=== PATIENT | female | born 1975 | race Caucasian/White ===

== ENCOUNTER 2017-03-04 16:16 | Emergency (ER) | payer OTHER ==
[2017-03-04 16:27] VITALS: BP 121/76
--- NOTE | 2017-03-04 16:59 | UC ---
Complaint Female HPI - HPI Summary HPI Summary: 41 y/o female PMHX presents to the urgent care c/o urgency and hesitancy to urinate since last night. This morning she had mild hematuria. Pt states she just started taking OCP about 2 months ago. she has been spotting every every other 2 weeks. She is not sure if the hematuria is from her spotting. Pt denies fever, flank pain, lower back pain, abdominal pain, SOB, chest pain, N/V/D, vaginal discharge. - History Of Current Complaint Chief Complaint: UCGU Stated Complaint: UTI Time Seen by Provider: 03/04/17 16:48 Hx Obtained From: Patient Hx Last Menstrual Period: 21 days ago ?: No Onset/Duration: Gradual Onset, Lasting Days - 1 day, Still Present Timing: Constant, Lasting Days - 1 day Severity Initially: Mild Severity Currently: Moderate Pain Intensity: 6 Pain Scale Used: 0-10 Numeric Character: Burning Aggravating Factor(s): Urination Alleviating Factor(s): Nothing Associated Signs And Symptoms: Positive: Negative. Negative: Fever, Back Pain, Vaginal Bleeding/Discharge, Vaginal Discharge, Nausea, Vomiting(# Of Episodes =) , Genital Swelling, Genital Blisters - Risk Factors Ectopic Risk Factor: Negative Ovarian Torsion Risk Factor: Negative - Allergies/Home Medications Allergies/Adverse Reactions: Allergies Allergy/AdvReac Type Severity Reaction Status Date / Time Sulfa Antibiotics Allergy Rash Verified 03/04/17 16:28 dust,cats, mold, grass Allergy Unknown Uncoded 03/04/17 16:28 Reaction Details Home Medications: Home Medications Norethindrone Acet & Eth Estra [Alli 07/07 1-20 mg-Mcg] 1 tab PO DAILY 03/04/17 [History Confirmed 03/04/17] PMH/Surg Hx/FS Hx/Imm Hx Previously Healthy: Yes Respiratory History: Asthma Other GI/ History: Chrons - Surgical History Surgical History: Yes Surgery Procedure, Year, and Place: ileostomy; tonsilectomy; wisdom teeth; partial hysterectomy(tubes only); appe - Family History Known Family History: Negative: Cardiac Disease, Hypertension, Diabetes Family History: Dyslipidemia - Social History Occupation: Employed Full-time Lives: With Family Alcohol Use: Rare Substance Use Type: None Smoking Status (MU): Never Smoked Tobacco Have You Smoked in the Last Year: No - Immunization History Most Recent Influenza Vaccination: fall 2014 Review of Systems Constitutional: Negative Skin: Negative Eyes: Negative ENT: Negative Respiratory: Negative Cardiovascular: Negative Gastrointestinal: Negative Genitourinary: Dysuria, Hematuria, Urgency Motor: Negative Neurovascular: Negative Musculoskeletal: Negative Neurological: Negative Psychological: Negative Is Patient Immunocompromised?: No All Other Systems Reviewed And Are Negative: Yes Physical Exam Triage Information Reviewed: Yes Appearance: Well-Appearing, No Pain Distress, Well-Nourished Vital Signs: Initial Vital Signs Temp 98.7 F 03/04/17 16:25 Pulse 89 03/04/17 16:25 Resp 18 03/04/17 16:25 BP 121/76 03/04/17 16:25 Pulse Ox 100 03/04/17 16:25 Vital Signs Reviewed: Yes Eye Exam: Normal Eyes: Positive: Conjunctiva Clear - PERRLA, EOMI ENT Exam: Normal ENT: Positive: Normal ENT inspection, Hearing grossly normal, Pharynx normal, TMs normal Neck exam: Normal Neck: Positive: Supple, Nontender, No Lymphadenopathy Respiratory Exam: Normal Respiratory: Positive: Chest non-tender, Lungs clear, Normal breath sounds Cardiovascular Exam: Normal Cardiovascular: Positive: RRR, No Murmur Abdominal Exam: Normal Abdomen Description: Positive: Nontender, No Organomegaly, Soft. Negative: CVA Tenderness (R), CVA Tenderness (L) Bowel Sounds: Positive: Present Musculoskeletal Exam: Normal Musculoskeletal: Positive: Strength Intact, ROM Intact, No Edema Neurological Exam: Normal Psychological Exam: Normal Skin Exam: Normal Complaint Female Dx - Course Course Of Treatment: 41 y/o female PMHX presents to the urgent care c/o urgency and hesitancy to urinate since last night. This morning she had mild hematuria. Pt states she just started taking OCP about 2 months ago. she has been spotting every every other 2 weeks. She is not sure if the hematuria is from her spotting. Pt denies fever, flank pain, lower back pain, abdominal pain , SOB, chest pain, N/V/D, vaginal discharge. HX obtained. UA ordered, result:2+ leukoesteraces, 3+blood, 2+protein. test:negative. Pt with UTI. Rx Macrobid PO and Pyridium PO to alleviate symptoms. Advised to increae fluid intake and if symptoms do not improve please return to the urgent care or f/u with your PCP. PT undersood and agreed with plan of care. - Differential Dx/Diagnosis Differential Diagnosis/HQI/PQRI: Cervicitis, Pelvic Inflammatory Disease, , Renal Colic, Sexually Transmitted Disease, Urinary Tract Infection Provider Diagnoses: 1- Urinary tract infection. 2-Dysuria Discharge - Discharge Plan Condition: Stable Disposition: HOME Prescriptions: Nitrofurantoin Monohyd Macro [Macrobid] 100 mg PO BID #14 cap Phenazopyridine TAB* [Pyridium 100 mg TAB*] 100 mg PO TID #6 tab Patient Education Materials: Urinary Tract Infection in Women (ED) Referrals: Leslye Howard [Primary Care Provider] - 1 Week Additional Instructions: 1- Please take Macrobid 100mg PO x 7 days. Pyridium 100mg PO TID x 2 days to alleviate urinary symptoms. Increase increase fluid intake. 2-If symptoms do not improve please return to the urgent care or f/u with your PCP.
--- NOTE | 2017-03-06 18:48 | ED ---
Progress - Progress Note Progress Note: NO CHANGE Course/Dx - Course Course Of Treatment: 41 y/o female PMHX presents to the urgent care c/o urgency and hesitancy to urinate since last night. This morning she had mild hematuria. Pt states she just started taking OCP about 2 months ago. she has been spotting every every other 2 weeks. She is not sure if the hematuria is from her spotting. Pt denies fever, flank pain, lower back pain, abdominal pain , SOB, chest pain, N/V/D, vaginal discharge. HX obtained. UA ordered, result:2+ leukoesteraces, 3+blood, 2+protein. test:negative. Pt with UTI. Rx Macrobid PO and Pyridium PO to alleviate symptoms. Advised to increae fluid intake and if symptoms do not improve please return to the urgent care or f/u with your PCP. PT undersood and agreed with plan of care. - Diagnoses Provider Diagnoses: UTI (urinary tract infection)
== END 2017-03-04 17:17 | disposition home or self-care (01) ==
LOC: UCEAST 16:16
DX: N39.0 Urinary tract infection, site not specified (principal); B95.7 Other staphylococcus as the cause of diseases classified elsewhere; R31.9 Hematuria, unspecified; R30.0 Dysuria; Z32.02 Encounter for pregnancy test, result negative; J45.909 Unspecified asthma, uncomplicated; K50.90 Crohn's disease, unspecified, without complications; Z90.711 Acquired absence of uterus with remaining cervical stump; Z88.2 Allergy status to sulfonamides
CPT/HCPCS: 81003; 84702; 87077; 87086; 99212; G0463